=== PATIENT | female | born 1995 | race Caucasian/White ===

== ENCOUNTER 2018-11-01 08:23 | Outpatient (CLI) | payer OTHER ==
--- NOTE | 2018-11-01 13:20 | Ultrasound Report ---
Reason: SCREENING,OTEHR SPECIFIED Procedure Date: 11/01/2018 Accession Number: [id number] / [id number] Procedure: US - OB Detailed Eval CPT Code: FULL RESULT: EXAM: COMPLETE OBSTETRICAL ULTRASOUND EXAM DATE: 11/01/2018 10:15 AM. CLINICAL HISTORY: anatomic survey. COMPARISON: None. TECHNIQUE: Real-time sonographic evaluation of the fetus performed by the material manager. Multiple claim service representative static images were saved for review. Additional transvaginal imaging to more accurately evaluate cervical length/placental position/etc. DATING: Established EGA 19 weeks 1 day with [facility] 03/27/2019 based on LMP. EGA 19 weeks 2 days with [facility] 05/26/2018 based on the current ultrasound. GENERAL EVALUATION Macias . Cardiac activity: bpm. movement: Visualized. Presentation: Variable Placenta: Posterior position. Low lying placental edge approximately 1-2 cm from internal os. Umbilical cord: 3 vessel cord. Central placental cord origin. Amniotic fluid: Subjectively normal. MVP 4.0 cm. SOSA 11.4 cm. BIOMETRY Bi-Parietal Diameter (BPD): 4.4 cm, 19 weeks 3 days Head Circumference (HC): 16.5 cm, 19 weeks 1 day Abdominal Circumference (AC): 13.5 cm, 19 weeks 0 days Femur Length (FL): 3.1 cm, 19 weeks 4 days Estimated Weight: 281 g, 51 percentile for 19 weeks 1 day. ANATOMY The intracranial structures, profile, face/nose/lips, spine, 4 chamber heart and outflow tracts, stomach, abdominal wall and cord insertion, diaphragm, kidneys, bladder, and extremities were visualized and demonstrate no abnormality. MATERNAL STRUCTURES Uterus: Probable tiny anterior intramural fibroid measuring 19 mm in maximal diameter. Cervix: Long and closed. Transabdominal length 4.2 cm. Right ovary/adnexa: Unremarkable. Left ovary/adnexa: Unremarkable. Free fluid: None. IMPRESSION: 1. Macias live intrauterine with gestational age 19 weeks 2 days based on current ultrasound. 2. Estimated weight is within expected limits for assigned dating. 3. Normal anatomic survey. No anatomic abnormalities are detected at this time. RADIA
== END 2018-11-01 08:24 | disposition home or self-care (01) ==
LOC: DI 08:23
PROVIDERS: ATTEND Obstetrics & Gynecology
DX: Z36.89 Encounter for other specified antenatal screening (principal)
CPT/HCPCS: 76811

== ENCOUNTER 2018-11-13 09:38 | Outpatient (CLI) | payer OTHER ==
[2018-11-15 12:41] LABS: HSV 1 IGG TYPE SPECIFIC AB <0.90 index; HSV 2 IGG TYPE SPECIFIC AB <0.90 index
== END 2018-11-13 23:59 | disposition home or self-care (01) ==
LOC: LAB 09:38
PROVIDERS: ATTEND Obstetrics & Gynecology
DX: Z34.00 Encounter for supervision of normal first pregnancy, unspecified trimester (principal); Z91.89 Other specified personal risk factors, not elsewhere classified
CPT/HCPCS: 36415; 86695; 86696

== ENCOUNTER 2018-12-20 10:16 | Outpatient (CLI) | payer OTHER ==
[2018-12-20 11:37] LABS: HGB - HEMOGLOBIN 11.6 g/dL (12.0-16.0); MEAN CORPUSCULAR HEMOGLOBIN 31.3 pg (27.0-31.0); MEAN CORPUSCULAR HGB CONC 33.5 g/dL (32.0-36.0); MEAN CORPUSCULAR VOLUME 93.3 fL (81.0-99.0); MEAN PLATELET VOLUME 10.2 fL (7.9-10.8); RED BLOOD COUNT 3.71 10^6/uL (4.20-5.40); RED CELL DISTRIBUTION WIDTH 13.2 % (12.0-15.0); WHITE BLOOD COUNT 9.3 x10^3/uL (4.8-10.8)
== END 2018-12-20 10:17 | disposition home or self-care (01) ==
LOC: LAB 10:16
PROVIDERS: ATTEND Obstetrics & Gynecology
DX: Z36.89 Encounter for other specified antenatal screening (principal)
CPT/HCPCS: 36415; 82950; 85027; 86850

== ENCOUNTER 2019-01-04 08:42 | Outpatient (CLI) | payer OTHER | END 2019-01-04 08:43 | disposition home or self-care (01) | LOC: LAB 08:42 | PROVIDERS: ATTEND Obstetrics & Gynecology | DX: O99.810 Abnormal glucose complicating pregnancy (principal) | CPT/HCPCS: 36415; 82951; 82952 ==

== ENCOUNTER 2019-03-02 08:00 | Outpatient (CLI) | payer OTHER ==
[2019-03-02 22:02] LABS: TRICHOMONAS VAGINALIS DNA NEGATIVE (NEGATIVE)
== END 2019-03-02 08:01 | disposition home or self-care (01) ==
LOC: LAB.R 08:00
PROVIDERS: ATTEND Obstetrics & Gynecology
DX: Z34.00 Encounter for supervision of normal first pregnancy, unspecified trimester (principal)
CPT/HCPCS: 87491; 87591; 87661; 87797

== ENCOUNTER 2019-03-25 14:01 | Inpatient (IN) | payer OTHER ==
[2019-03-25] MEDS ORDERED: SODIUM CHLORIDE FLUSH 0.9% 10 ML SYRINGE IVP PRN ×3 (14:17→16:43)
[2019-03-25 14:41] LABS: RUPTURE OF MEMBRANES PLUS POSITIVE (NEGATIVE)
[2019-03-25] MEDS ORDERED: ONDANSETRON 4 MG/2 ML VIAL IVP PRN (14:52)
[2019-03-25] MEDS ORDERED: fentaNYL 100 MCG/2 ML VIAL IVP PRN (14:52)
[2019-03-25] MEDS ORDERED: OXYTOCIN/SODIUM CHLORIDE 500 ML IV PRN (14:52)
[2019-03-25] MEDS ORDERED: METOCLOPRAMIDE 10 MG/2 ML VIAL IVP PRN (14:52)
[2019-03-25] MEDS ORDERED: miSOPROStoL 200 MCG TABLET PR SCH (14:57)
[2019-03-25 15:27] LABS: BASOPHILS # (AUTO) 0.1 10^3/uL (0.0-0.1); BASOPHILS % (AUTO) 0.5 %; EOSINOPHILS # (AUTO) 0.1 10^3/uL (0.0-0.7); EOSINOPHILS % (AUTO) 0.8 %; LYMPHOCYTES % (AUTO) 18.7 %; MEAN CORPUSCULAR HGB CONC 34.1 g/dL (32.0-36.0); MEAN CORPUSCULAR VOLUME 90.9 fL (81.0-99.0); MEAN PLATELET VOLUME 10.7 fL (7.9-10.8); MONOCYTES # (AUTO) 0.7 10^3/uL (0.0-1.0); MONOCYTES % (AUTO) 6.4 %; NEUTROPHILS # (AUTO) 7.6 10^3/uL (1.5-6.6); NEUTROPHILS % (AUTO) 72.3 %; PLT - PLATELET COUNT 161 10^3/uL (130-450); RED BLOOD COUNT 4.51 10^6/uL (4.20-5.40); RED CELL DISTRIBUTION WIDTH 13.6 % (12.0-15.0); WHITE BLOOD COUNT 10.5 x10^3/uL (4.8-10.8)
--- NOTE | 2019-03-25 16:49 | HISTORY & PHYSICAL EXAMINATION ---
Admit History - Visit Reason Visit Reason: Membranes rupture - : 1 Parity: 0 Care: positive: [facility] Risk/History: positive: None Complications This : positive: None Smoking Status: Never smoker - Mother's Labs Mother's Blood Type: positive: O Mother's RH: positive: Positive GBS: positive: Group B Step Negative Rubella Status: positive: Immune (Patient is a 23-year-old G1, P0 at 39 weeks 5 days here with spontaneous rupture of membranes. has been complicated by failed Glucola of 160 with normal follow-up 3-hour oral glucose tolerance test. Patient has had membranes stripped twice. SVE 8 prior exam was 2/50/- 2/medium/mid. At approximately 12 noon today, patient experienced low loss of fluid per vagina. She presented to triage and tested positive with the ROM plus. Mild, intermittent contractions per her assessment. No vaginal bleeding. Endorses movement. Wants to proceed with unmedicated vaginal delivery if possible. Does not want to be offered an epidural. Wants us to deny her epidural until she is asked to 3 times.) - Other Maternal History Other Maternal History: Patient is a 23-year-old G1, P0 at 39 weeks 5 days estimated gestational age here with spontaneous rupture of membranes. has been uncomplicated to date. Abnormal Glucola of 160 with normal follow-up 3-hour oral glucose tolerance test. Reports slow loss of fluid starting at 12:00 today. No vaginal bleeding. Endorses mild, intermittent contractions. Endorses movement. Desires unmedicated delivery if possible. Vertex by US O pos/Rub imm 1st trimester screen wnl, declined AFP FAS complete wnl. Low lying placenta but already 2 cm from os Breast pump prescription given Glucola: 160; normal 3H. Reviewed benefits of lower carbohydrate diet TDaP: complete GBS: neg Position: vertex by us HSV neg hx. Requested serologic testing: neg x2 Review of Systems - Other Findings Other Findings: As per HPI otherwise remaining systems are negative. Physical - Abdominal Exam Vital Signs: Temp Pulse Resp BP Pulse Ox 97.9 F 89 16 134/80 H 100 03/25/19 14:27 03/25/19 14:27 03/25/19 14:27 03/25/19 14:27 03/25/19 14:27 Contraction Frequency (min/apart): Irregular, Q5-7 Contraction Intensity: positive: Mild to moderate Uterine Resting Tone: positive: Soft - Monitoring Heart Rate Baseline: 150 Strip Review: positive: Category I - Presentation Presentation: positive: Vertex - Vaginal Exam Membranes: positive: Membranes ruptured Dilation (in cm): 2 Effacement (%): 70 Station: positive: -2 Cervical Position: positive: Midposition - Speculum Exam Speculum Exam Performed: positive: No Findings: positive: Gross leak, Other (ROM+ positive) Plan for Labor - Plan For Labor Plan for Labor: LABOR: -Patient desires expectant management. Reviewed increased risks of chorioamnionitis after extended rupture. Recommend augmentation if labor has not started within 5 hrs of rupture. -Reviewed augmentation. Would recommend single dose misoprostol 50 mcg and then starting pitocin per protocol. -FU at 17:00 FWB: Vertex. Well grown. GBS neg. Cat I tracing -CEFM while under augmentation PAIN: Desires unmedicated delivery. Anticipate In-patient care
[2019-03-25] MEDS: miSOPROStoL 100 MCG TABLET BC SCH (16:50)
[2019-03-25] MEDS ORDERED: SODIUM CHLORIDE FLUSH 0.9% 10 ML SYRINGE IVP SCH ×2 (17:00)
[2019-03-25] MEDS: LACTATED RINGERS 1,000 ML IV SCH (21:28)
[2019-03-25] MEDS: OXYTOCIN/SODIUM CHLORIDE 500 ML IV PRN (21:28)
[2019-03-26] MEDS ORDERED: LACTATED RINGERS 1,000 ML IV ONE (02:04)
[2019-03-26] MEDS ORDERED: fentaNYL 100 MCG/2 ML VIAL ONE (02:06)
[2019-03-26] MEDS ORDERED: ROPIVACAINE 0.2% 200 MG/100 ML BAG EP ONE (02:07)
--- NOTE | 2019-03-26 02:38 | ANESTHESIA ---
Pre-Anesthesia VS, & Labs - Diagnosis Active labor - Procedure Continuous labor epidural Vital Signs: Temp Pulse Resp BP Pulse Ox 36.6 C 89 16 134/80 H 100 03/25/19 14:27 03/25/19 14:27 03/25/19 14:27 03/25/19 14:27 03/25/19 14:27 Height 5 ft 1.75 in Weight (kg) 72.575 kg - NPO Other (ice chips) - Is Patient ?: Yes - Lab Results Current Lab Results: Laboratory Tests 03/25/19 15:10: WBC 10.5, RBC 4.51, Hgb 14.0, Hct 41.0, MCV 90.9, MCH 31.0, MCHC 34.1, RDW 13.6, Plt Count 161, MPV 10.7, Neut # (Auto) 7.6 H, Lymph # (Auto) 2.0, [place] # (Auto) 0.7, Eos # (Auto) 0.1, Baso # (Auto) 0.1, Absolute Nucleated RBC 0.00, Nucleated RBC % 0.0 Fish Bones: 03/25/19 15:10 Home Medications and Allergies Active Medications Acetaminophen (Tylenol) 650 mg PO Q6H YURIY Fentanyl (Fentanyl) 50 mcg IVP Q1H PRN PRN Reason: PAIN Lactated Ringer's (Lr) 1,000 mls @ 150 mls/hr IV .Q6H40M YURIY Lactated Ringer's (Lr) 1,000 mls @ 100 mls/hr IV .Q10H YURIY Last Admin: 03/25/19 21:28 Dose: 100 mls/hr Oxytocin/Sodium Chloride (Pitocin/Sodium Chloride) 500 mls @ 999 mls/hr IV PRN PRN; Protocol PRN Reason: NEEDED PER PROVIDER ORDERS Last Admin: 03/25/19 21:28 Dose: 999 milliunit/min, 999 mls/hr Metoclopramide HCl (Reglan Inj) 10 mg IVP Q6H PRN PRN Reason: Nausea / Vomiting Misoprostol (Cytotec) 800 mcg MS ONCE YURIY Stop: 03/26/19 14:56 Misoprostol (Cytotec) 50 mcg BC Q4H YURIY Last Admin: 03/25/19 16:50 Dose: 50 mcg Ondansetron HCl (Zofran Inj) 4 mg IVP Q4H PRN PRN Reason: Nausea / Vomiting Sodium Chloride (Normal Saline Flush 0.9%) 10 ml IVP PRN PRN PRN Reason: NEEDED PER PROVIDER ORDERS Sodium Chloride (Normal Saline Flush 0.9%) 10 ml IVP 0100,0900,1700 YURIY Anes History & Medical History - Anesthetic History Anesthesia Complications: reports: No previous complications Family history of Anesthesia Complications: Denies Family history of Malignant Hyperthermia: Denies - Medical History Cardiovascular: reports: None Pulmonary: reports: None Gastrointestinal: reports: None Urinary: reports: None Neuro: reports: None Musculoskeletal: reports: None Endocrine/Autoimmune: reports: None Blood Disorders: reports: None Skin: reports: None Smoking Status: Never smoker Psychosocial: reports: No issues indicated - Obstetrical History : 1 Parity: 0 Events: positive: None Complications: positive: None Exam General: Alert, Oriented x3, Moderate distress Dental: WNL Mouth Opening: Greater than 4 Fingerbreadths Neck Mobility: Normal Mallampati classification: II Thyromental Distance: greater than 6 cm Cardiovascular: Regular rate Neurological: Normal speech Mental/Cognitive Status: Alert/Oriented X3 Cognitive Status: Within normal limits Plan Anesthesia Type: Epidural Consent for Procedure(s) Verified and Reviewed: Yes Code Status: Attempt Resuscitation ASA classification: 2-Mild systemic disease Is this case an emergency?: Yes
--- NOTE | 2019-03-26 02:40 | ANESTHESIA PROCEDURE NOTE ---
Anesthesia Epidural Template - Patient Report Patient Reports: positive: Pain controlled (See EHR for meds, rate)
[2019-03-26] MEDS ORDERED: ROPIVACAINE 0.2% 200 MG/100 ML BAG EP PRN (02:42)
[2019-03-26] MEDS ORDERED: ONDANSETRON 4 MG/2 ML VIAL IVP PRN ×2 (02:47)
[2019-03-26] MEDS ORDERED: NALBUPHINE 10 MG/ML AMP IVP PRN ×2 (02:47)
[2019-03-26] MEDS ORDERED: METOCLOPRAMIDE 10 MG/2 ML VIAL IVP PRN (02:47)
[2019-03-26] MEDS ORDERED: ePHEDrine 50 MG/ML VIAL IVP PRN (02:47)
[2019-03-26] MEDS ORDERED: LACTATED RINGERS 500 ML IV ONE (02:47)
[2019-03-26] MEDS ORDERED: NALOXONE 0.4 MG/ML VIAL IVP PRN (02:47)
[2019-03-26] MEDS ORDERED: diphenhydrAMINE INJ 50 MG/ML VIAL IVP PRN ×2 (02:47)
[2019-03-26] MEDS: LACTATED RINGERS 1,000 ML IV SCH ×7 (03:04→11:52)
[2019-03-26] MEDS ORDERED: LIDOCAINE-MPF 1% 30 ML VIAL ID PRN (07:45)
[2019-03-26] MEDS ORDERED: miSOPROStoL 100 MCG TABLET BC SCH (07:58)
[2019-03-26] MEDS: OXYTOCIN/SODIUM CHLORIDE 500 ML IV PRN (08:15)
[2019-03-26] MEDS ORDERED: METHYLERGONOVINE 0.2 MG/ML AMP IM PRN (08:26)
[2019-03-26] MEDS ORDERED: ONDANSETRON ODT 4 MG TABLET TL PRN (08:26)
[2019-03-26] MEDS ORDERED: CARBOPROST TROMETHAMINE 250 MCG/ML AMP IM PRN (08:26)
[2019-03-26] MEDS ORDERED: SIMETHICONE CHEW 80 MG TABLET PO PRN (08:26)
--- NOTE | 2019-03-26 08:30 | DELIVERY NOTE ---
Delivery Note - Infant Delivery Method Infant Delivery Method: positive: Spontaneous vaginal delivery - Cervical Ripening Method Cervical Ripening Method: positive: Misoprostil, Oxytocin - Presentation Presentation: positive: Vertex, CLAUDIA - right occiput anterior - Nuchal Cord Nuchal Cord: positive: None (Bandolier cord), Present - Anesthetic Anesthetic Type: - Amniotic Fluid Description Amniotic Fluid Description: positive: Clear - Laceration Laceration: positive: 1st degree, Periurethral - Suture Suture Type: positive: Vicryl Suture Size: positive: 4-0 - Delivery Outcome Delivery Outcome: positive: Livebirth - [place] : positive: Placed in direct skin contact with mother, Suctioned, Stimulated, Warmed, Lillian used sex: positive: Female - Cord Cord: positive: 3 vessels - Placenta Placenta: positive: Intact, Expressed - Estimated Blood Loss Estimated Blood Loss (in cc): 250 - Post Delivery Events Post Delivery Events: positive: No post delivery events - Delivery Comments (Free Text/Narrative) Delivery Comments (Free Text/Narrative): STAGE I: Patient is a 23-year-old G1, P0 at 39 weeks 5 days who presented with spontaneous rupture of membranes. Rupture occurred at approximately 12:00 pm on 03/25/19. Initial SVE was 2/70/-2/medium/mid. Clear fluid; no meconium. Expectant management for 5 hours prior to augmenting with misoprostol 50 mcg buccal x1.Augmentation continued with Pitocin, meeting maximum dose of 2 milliunits/min.GBS negative, no antibiotic prophylaxis indicated. Epidural for pain management. Category 1 tracing throughout stage I labor. STAGE II: Completely dilated at about 6:17 am. Labored down for approximately hour. Pushed well for about 32 minutes to deliver a viable female in vertex position. Delivered at 7:37 am. CLAUDIA presentation. Delivered easily with left shoulder anterior. Bandolier cord over shoulder and around waist. Delivered to maternal abdomen. Delayed cord clampling until pulsations had ceased. Then cord was clamped x2 and cut. Cord blood collected for maternal blood type of O positive. Apgars 9/9, weight pending. STAGE III: Placenta delivered with gentle downward pressure on cord and manual expression. Examined and found to be intact. Inspection of perineum revealed a first degree, right sided, periurethral laceration. Repaired with 4-0 Vicryl in the usual sterile fashion. Bleeding was heavier than usual after delivery. Misoprostol 600 mcg BC administered for prememptive management. EBL 250 cc. Procedure was well tolerated and without complication.
[2019-03-26] MEDS ORDERED: LIDOCAINE-MPF 1% 30 ML VIAL ONE ×2 (08:33→09:08)
[2019-03-26] MEDS ORDERED: miSOPROStoL 200 MCG TABLET ONE ×2 (08:34→09:08)
[2019-03-26] MEDS ORDERED: LACTATED RINGERS 1,000 ML IV SCH (09:00)
[2019-03-26] MEDS: IBUPROFEN 600 MG TABLET PO PRN ×3 (11:03→22:41)
[2019-03-26] MEDS: DOCUSATE SODIUM 100 MG CAPSULE PO PRN ×2 (11:04→22:41)
[2019-03-26] MEDS: ACETAMINOPHEN 500 MG TABLET PO PRN ×2 (11:04→18:45)
[2019-03-26] MEDS: HYDROCORTISONE 1% CREAM 28 GM TUBE PR PRN (11:10)
[2019-03-26] MEDS: miSOPROStoL 100 MCG TABLET BC SCH ×4 (11:45→11:51)
[2019-03-26] MEDS: SODIUM CHLORIDE FLUSH 0.9% 10 ML SYRINGE IVP SCH ×4 (11:45→17:09)
[2019-03-26] MEDS: ACETAMINOPHEN 325 MG TABLET PO SCH ×5 (11:46→11:52)
[2019-03-27] MEDS: ACETAMINOPHEN 325 MG TABLET PO SCH (02:34)
[2019-03-27] MEDS: IBUPROFEN 600 MG TABLET PO PRN ×3 (05:31→16:49)
[2019-03-27] MEDS: ACETAMINOPHEN 500 MG TABLET PO PRN ×2 (08:09→16:49)
[2019-03-27] MEDS: DOCUSATE SODIUM 100 MG CAPSULE PO PRN ×2 (08:10→21:29)
--- NOTE | 2019-03-27 09:02 | PROVIDER PROGRESS NOTE ---
Subjective - Prog Note Date Prog Note Date: 03/27/19 Prog Note Time: 09:01 - Subjective Pt reports feeling: Improved (Pain 2/10 breast feeding. reviewed advantages.) Objective - Vital Signs/Intake & Output Reviewed Vital Signs: Yes Vital Signs: Vital Signs x48h Temp Pulse Resp BP Pulse Ox 03/27/19 08:00 36.5 C 75 16 122/80 100 03/27/19 05:30 36.4 C L 84 16 122/78 100 Intake & Output: Intake & Output 03/25/19 03/25/19 03/26/19 03/27/19 00:59 23:59 23:59 23:59 Intake Total 2590 Output Total 1100 Balance 1490 - Objective General Appearance: positive: No acute distress, Alert Respiratory: positive: Chest non-tender, No respiratory distress, Breath sounds nml Cardiovascular: positive: Regular rate & rhythm, No murmur, No gallop Abdomen: positive: Non-tender, Mass (U-1 mildly tender) Back: negative: CVA tenderness (R), CVA tenderness (L) Extremities: negative: Calf tenderness, Ochoa's sign/cords - Lab Results Fish Bones: 03/25/19 15:10 Other Labs: Lab Results x24hrs 03/26/19 03/25/19 Range/Units 07:30 15:10 Blood Type O POSITIVE Blood Type Recheck O POSITIVE Antibody Screen NEGATIVE Assessment/Plan - Problem List (1) (spontaneous vaginal delivery) Impression: PPD #1 progressing breast feeding.
[2019-03-28] MEDS: IBUPROFEN 600 MG TABLET PO PRN ×2 (06:02→12:36)
[2019-03-28] MEDS: ACETAMINOPHEN 500 MG TABLET PO PRN (06:02)
[2019-03-28 09:40] VITALS: BP 125/80
[2019-03-28] MEDS: HYDROCORTISONE 1% CREAM 28 GM TUBE PR PRN (12:36)
[2019-03-28] MEDS: DOCUSATE SODIUM 100 MG CAPSULE PO PRN (12:36)
--- NOTE | 2019-03-28 13:25 | Labor Flowsheet ---
Labor Flowsheet Datetime Report Generated by CPN: 03/28/2019 13:25 Datetime: 03/28/2019 09:23 VITAL SIGNS NBP Sys/Praveena/Mean (mmHg): 125 : 80 : 89 Pulse: 77 LaborFlag: Labor Datetime: 03/27/2019 05:29 SpO2 (%): 100 Datetime: 03/26/2019 07:37 UTERINE ACTIVITY Monitor Mode: External Frequency (min): 2-3 Quality: Strong Duration (sec): 60 Pattern: Normal: <= 5 Contractions in 10 Minutes Resting Tone (Palpate): Relaxed Stage 2 Comments: 0737 female infant Datetime: 03/26/2019 07:34 Pushing Position: Pushing with Contractions; Pushing Lithotomy Pushing Progress: Descent with Pushing; Presenting Part Visible; with Pushing; Pushing Eff ectively with Contractions Datetime: 03/26/2019 07:15 ASSESSMENT A Monitor Mode: External US FHR Baseline Rate : 135 Variability: Moderate 6-25 bpm Accelerations: 10X10 Decelerations: Variable Category: Category II Comments: Variable decels after patient began pushing Oxygen Method: Room Air Datetime: 03/26/2019 07:09 STAGE 2 Pushing: Coached on Pushing Communication Comments: Bedside report given to SHAHIDA Gilbert at bedside by SHAHIDA Staley. Care ta ashley over at this time Datetime: 03/26/2019 07:00 COMMUNICATION Communication: Provider at Bedside Datetime: 03/26/2019 06:36 Patient Position/Activity: Right Tilt; High Fowlers Datetime: 03/26/2019 06:34 Monitor Interventions for FHR: Ultrasound Adjusted Datetime: 03/26/2019 06:30 Contraction Comments: difficulty tracing ctx at this time due to maternal positioning Datetime: 03/26/2019 06:25 Temperature (C): 36.9 Datetime: 03/26/2019 06:17 Notification Reason: Status Update; Labor Status Datetime: 03/26/2019 06:15 VAGINAL EXAM Dilatation (cm): 10.0 Effacement (%): 100 Station: 0 Exam by: SHAHIDA Staley Vaginal Bleeding: Normal Show Datetime: 03/26/2019 06:12 Pain Assessment Comments: pt complaining of increased pain/pressure during and without ctx Datetime: 03/26/2019 05:11 PAIN Pain Scale: 2 Pain Presence: Intermittent Pain Type: Contraction Anesthesia Level Check: T10- Umbilicus Anesthesia Comments: Pt pain well controlled by epidural and is not pressing button for excess dosi ng. Pt able to assist with position changes and can slightly bend/lift legs. Datetime: 03/26/2019 03:34 Patient Care Comments: maternal positioning Datetime: 03/26/2019 03:15 Pitocin Checklist: At Least 1 Acceleration of 15 bpm x 15 Seconds in 30 Minutes or Adequate Variabi lity Datetime: 03/26/2019 03:14 Actions for Decelerations: IV Bolus Datetime: 03/26/2019 03:03 PATIENT CARE IV/Blood Work: New IV Bag Hung; IV Bag Number @ 2 Datetime: 03/26/2019 02:51 Monitor Interventions for UA: Bigelow Adjusted Datetime: 03/26/2019 02:39 Cervix, Consistency: Soft Cervix, Position: Midposition I/O Interventions: Grande Cath Inserted Datetime: 03/26/2019 02:25 Epidural Procedure Other: Pump Started Datetime: 03/26/2019 02:13 Epidural Procedure: Loading Dose Datetime: 03/26/2019 02:00 Epidural Positioning: Sitting Datetime: 03/26/2019 01:48 PROCEDURE TIME OUT Procedure Verify: Correct Side and Site are Marked; Accurate Procedure Consent Form; Agreement on P rocedure to be Done ANESTHESIA Anesthesia Plans: Epidural Datetime: 03/26/2019 00:30 Pain Location: Abdomen Pain Relief Measures: Comfort Measures Pain Coping: Breathing Through Contractions; Requesting Pain Medication or Epidural Comfort Measures: Breathing/Relaxation; Hot Shower/Tub/Spa; Back Rub Given; Family Support; Aromath erapy Hygiene: Underpad Changed; Gown Changed Datetime: 03/25/2019 22:11 MEDICATIONS Pitocin (milliunits): Increased to @ 2 Datetime: 03/25/2019 21:52 Membranes Ruptured Date/Time: 03/25/2019 12:00 Membranes Rupture Method: Spontaneous Amniotic Fluid Color: Clear Amniotic Fluid Amount: Small Amniotic Fluid Odor: Normal Cervical Ripening Agents Other: Pitocin Datetime: 03/25/2019 20:50 TEACHING Instructional Method: Verbal; Patient Instructed; Family/Support Person Instructed; Verbalized Unde rstanding Plan of Care: Plan of Care Discussed Unit Routine: Monitoring; IV Pumps Labor/Induction: Interventions Pain Management: IV Narcotics; Epidural; PRN Medications; Comfort Measures Related: Activity and Rest Datetime: 03/25/2019 19:44 FHR Baseline Changes: No Baseline Change Datetime: 03/25/2019 17:57 Respirations: 18 Datetime: 03/25/2019 16:50 Cervical Ripening Agents: Cytotec @ Medication Comments: buccal
--- NOTE | 2019-04-02 19:02 | DISCHARGE SUMMARY ---
Discharge Summary Discharge Date: 03/28/19 Discharging Provider: Emily Keenan MD Condition at Discharge: Good Discharge Disposition: 01 Home, Self Care - DIAGNOSES Admission Diagnoses: IUP at 39w5d Spontaneous rupture of membranes Discharge Diagnoses with Status of Each Condition: Same and delivery of term gestation - HPI History of Present Illness: Patient is a 23-year-old G1, P0 at 39 weeks 5 days who presented with spontaneous rupture of membranes. had been complicated by failed Glucola of 160 with normal follow-up 3-hour oral glucose tolerance test. Patient has had membranes stripped twice. SVE 8 prior exam was 2/50/-2/medium/mid. At approximately 12 noon on day of admission, patient experienced loss of fluid per vagina. She presented to triage and tested positive with the ROM plus. Mild, intermittent contractions per her assessment. - HOSPITAL COURSE Hospital Course: STAGE I: Patient is a 23-year-old G1, P0 at 39 weeks 5 days who presented with spontaneous rupture of membranes. Rupture occurred at approximately 12:00 pm on 03/25/19. Initial SVE was 2/70/-2/medium/mid. Clear fluid; no meconium. Expectant management for 5 hours prior to augmenting with misoprostol 50 mcg buccal x1.Augmentation continued with Pitocin, meeting maximum dose of 2 milliunits/min.GBS negative, no antibiotic prophylaxis indicated. Epidural for pain management. Category 1 tracing throughout stage I labor. STAGE II: Completely dilated at about 6:17 am. Labored down for approximately hour. Pushed well for about 32 minutes to deliver a viable female infant in vertex position. Delivered at 7:37 am. CLAUDIA presentation. Delivered easily with left shoulder anterior. Bandolier cord over shoulder and around waist. Delivered to maternal abdomen. Delayed cord clampling until pulsations had ceased. Then cord was clamped x2 and cut. Cord blood collected for maternal blood type of O positive. Apgars 9/9, weight pending. STAGE III: Placenta delivered with gentle downward pressure on cord and manual expression. Examined and found to be intact. Inspection of perineum revealed a first degree, right sided, periurethral laceration. Repaired with 4-0 Vicryl in the usual sterile fashion. Bleeding was heavier than usual after delivery. Misoprostol 600 mcg BC administered for prememptive management. EBL 250 cc. course was uncomplicated. By PPD#1, patient was up and ambulating, tolerating po, and voiding. In-patient until PPD#2 for support and observation of . Discharged to home on PPD#2. O positive, rubella immune - ALLERGIES Allergies/Adverse Reactions: Allergies Allergy/AdvReac Type Severity Reaction Status Date / Time No Known Drug Allergies Allergy Verified 03/26/19 04:09 - PHYSICAL EXAM AT DISCHARGE General Appearance: positive: No acute distress Respiratory: positive: Chest non-tender, No respiratory distress, Breath sounds nml Cardiovascular: positive: Regular rate & rhythm Peripheral Pulses: positive: 1+ Abdomen: positive: Non-tender, No distention, Other (FF below umbilicus) Extremities: positive: Non-tender, No pedal edema - LABS Result Diagrams: 03/25/19 15:10 - FOLLOW UP Follow Up: Follow-up in one week withDr. Keenan for support and at 6 weeks for routine follow-up. - TIME SPENT Time Spent in Discharge (Minutes): 30
== END 2019-03-28 13:15 | disposition home or self-care (01) | DRG 807 ==
LOC: WFO 14:01 → FBP 14:03 → WFO 14:51 → FBP 14:52
PROVIDERS: ADMIT Obstetrics & Gynecology; ATTEND Obstetrics & Gynecology
PROC: 10E0XZZ Delivery of Products of Conception, External Approach (ICD-10-PCS; principal; 2019-03-26)
PROC: 0UQMXZZ Repair Vulva, External Approach (ICD-10-PCS; 2019-03-26)
DX: O71.82 Other specified trauma to perineum and vulva (principal); Z37.0 Single live birth; O69.82X0 Labor and delivery complicated by other cord entanglement, without compression, not applicable or unspecified; Z3A.39 39 weeks gestation of pregnancy
CPT/HCPCS: 36415; 84112; 85025; 86850; 86900; 86901; 99213; A9270; J7120

== ENCOUNTER 2019-10-28 10:37 | Emergency (ER) | payer OTHER ==
--- NOTE | 2019-10-28 11:31 | ED Physician Documentation ---
PD HPI SKIN - Stated complaint Stated Complaint: L BREAST PX/FEVER - Chief complaint Chief Complaint: General - History obtained from History obtained from: Patient - History of Present Illness Timing - onset: How many days ago (1-2) Timing - duration: Days (1-2) Timing - details: Abrupt onset Location: Chest (left breast) Quality / character: Painful, Discolored (red), Swelling. No: Vesicular Associated symptoms: No: Fever, Myalgias, N/V/D Contributing factors: Other () Similar symptoms before: Diagnosis (mastitis 7 months ago and again about 3 months ago, with interval time having) Recently seen: Not recently seen Review of Systems Constitutional: denies: Fever, Chills, Myalgias Nose: denies: Rhinorrhea / runny nose, Congestion Throat: denies: Sore throat Respiratory: denies: Cough GI: denies: Nausea, Vomiting, Diarrhea Skin: denies: Rash, Lesions PD PAST MEDICAL HISTORY - Past Medical History Past Medical History: No Cardiovascular: None Respiratory: None Neuro: None Endocrine/Autoimmune: None GI: None : None Musculoskeletal: None Derm: None - Past Surgical History Past Surgical History: No - Present Medications Home Medications: Ambulatory Orders Medication Instructions Recorded Confirmed Cephalexin [Keflex] 500 mg PO Q6H #28 capsule 10/28/19 Naproxen 500 mg PO BID #20 tablet 10/28/19 - Allergies Allergies/Adverse Reactions: Allergies Allergy/AdvReac Type Severity Reaction Status Date / Time No Known Drug Allergies Allergy Verified 03/26/19 04:09 - Social History Does the pt smoke?: No Smoking Status: Never smoker Does the pt drink ETOH?: No Does the pt have substance abuse?: No - Immunizations Immunizations are current?: Yes PD ED PE NORMAL - Vitals Vital signs reviewed: Yes - General General: Alert and oriented X 3, No acute distress, Well developed/nourished - HEENT HEENT: Pharynx benign - Neck Neck: Supple, no meningeal sign, No adenopathy - Cardiac Cardiac: RRR, No murmur, Other (left breast at 12-2 o'clock position with firmness, tenderness, redness and warmth. No fluctuance. ) - Respiratory Respiratory: No respiratory distress, Clear bilaterally - Abdomen Abdomen: Soft, Non tender Results - Vitals Vitals: Vital Signs - 24 hr 10/28/19 10/28/19 10:48 11:59 Temperature 36.5 C 36.8 C Heart Rate 96 95 Respiratory 16 16 Rate Blood Pressure 136/65 H 132/65 H O2 Saturation 98 98 Oxygen O2 Source Room air PD MEDICAL DECISION MAKING - ED course Complexity details: considered differential (acute mastitis in woman.), d/w patient Departure - Departure Disposition: 01 Home, Self Care Clinical Impression: Acute mastitis of left breast Condition: Stable Record reviewed to determine appropriate education?: Yes Instructions: ED Breast Infec Follow-Up: Ana Keenan MD [Primary Care Provider] - Prescriptions: Cephalexin [Keflex] 500 mg PO Q6H #28 capsule Naproxen 500 mg PO BID #20 tablet Comments: Stay well-hydrated. Continue breast-feeding or pumping. Tylenol as needed for fevers and pains. Also add anti-inflammatory such as naproxen twice daily for the next 5 to 7 days. Cephalexin antibiotic 4 times a day for a week for the infection. Recheck if not improving well over the next couple of days. Discharge Date/Time: 10/28/19 12:00
[2019-10-28] MEDS ORDERED: cephALEXin 250 MG CAPSULE PO STA (11:46)
[2019-10-28] MEDS ORDERED: NAPROXEN 250 MG TABLET PO STA (11:46)
[2019-10-28 12:01] VITALS: BP 132/65
== END 2019-10-28 12:00 | disposition home or self-care (01) ==
LOC: ED 10:37
DX: N61.0 Mastitis without abscess (principal)
CPT/HCPCS: 99282; 99284; A9270

== ENCOUNTER 2020-02-03 14:21 | Outpatient (CLI) | payer OTHER ==
--- NOTE | 2020-02-03 16:17 | Ultrasound Report ---
PROCEDURE: OB First Trimester INDICATIONS: POSITIVE TEST OUTSIDE/PRIOR DATING DATA: Last menstrual period (LMP): 12/07/2019. LMP-based estimated date of delivery (NENA): 09/12/2020. First dating scan (date and location): 02/03/2020, current study. Estimated date of delivery (NENA) from first dating scan: 09/09/2020. TECHNIQUE: Real-time scanning was performed of the fetus and maternal pelvic organs, with image documentation. COMPARISON: None available FINDINGS: Embryo: There is an intrauterine fundal gestational sac which contains products of conception includ ing a pole and yolk sac. The pole has a crown-rump length of 2.06 cm which corresponds to an 8 week 5 day +/- 5 day gestation. There is a detectable cardiac activity at a rate of 171 b pm. The yolk sac size is normal. Measurement variability in dating: +/- 4 weeks by LMP, +/- 7 days by mean sac diameter (use before 6 weeks gestation if crown-rump length not able to be measured), +/- 5 days by crown-rump length (6-12 weeks gestation). Maternal organs: Ovaries are normal including the corpus luteum on the right ovary and normal follic ular echotexture on the left. Limited images through the kidneys demonstrate no hydronephrosis. IMPRESSION: 1. Single living intrauterine with a gestational age of 8 weeks and 5 days, and sonographic ally derived due date of 09/09/2020, in agreement with the clinically assigned due date. 2. Right ovarian corpus luteum. Reviewed by: Ariella Roland MD on 02/03/2020 4:16 PM PDT Approved by: Ariella Roland MD on 02/03/2020 4:16 PM PDT Station ID: [id number]
== END 2020-02-03 14:22 | disposition home or self-care (01) ==
LOC: DI 14:21
PROVIDERS: ATTEND Obstetrics & Gynecology
DX: O34.81 Maternal care for other abnormalities of pelvic organs, first trimester (principal); N83.11 Corpus luteum cyst of right ovary; Z3A.08 8 weeks gestation of pregnancy
CPT/HCPCS: 76801

== ENCOUNTER 2020-02-21 16:08 | Outpatient (CLI) | payer OTHER ==
[2020-02-21 16:31] LABS: BASOPHILS % (AUTO) 0.2 %; EOSINOPHILS # (AUTO) 0.1 10^3/uL (0.0-0.7); EOSINOPHILS % (AUTO) 1.1 %; LYMPHOCYTES % (AUTO) 24.8 %; MEAN CORPUSCULAR HEMOGLOBIN 30.4 pg (27.0-31.0); MEAN CORPUSCULAR HGB CONC 35.1 g/dL (32.0-36.0); MEAN CORPUSCULAR VOLUME 86.4 fL (81.0-99.0); MEAN PLATELET VOLUME 9.7 fL (7.9-10.8); MONOCYTES # (AUTO) 0.4 10^3/uL (0.0-1.0); MONOCYTES % (AUTO) 5.5 %; NEUTROPHILS # (AUTO) 5.5 10^3/uL (1.5-6.6); NEUTROPHILS % (AUTO) 68.2 %; PLT - PLATELET COUNT 191 10^3/uL (130-450); RED BLOOD COUNT 4.28 10^6/uL (4.20-5.40); RED CELL DISTRIBUTION WIDTH 11.4 % (12.0-15.0)
[2020-02-22 07:06] LABS: HIV AG/AB 4TH GEN NON-REACTIVE (NON-REACTIVE)
[2020-02-22 15:05] LABS: HEPATITIS B SURFACE ANTIGEN NON-REACTIVE (NON-REACTIVE); HEPATITIS C ANTIBODY NON-REACTIVE (NON-REACTIVE)
== END 2020-02-21 16:09 | disposition home or self-care (01) ==
LOC: LAB 16:08
PROVIDERS: ATTEND Obstetrics & Gynecology
DX: Z36.89 Encounter for other specified antenatal screening (principal)
CPT/HCPCS: 36415; 81599; 85025; 86592; 86762; 86803; 86850; 86900; 86901; 87340; 87389

== ENCOUNTER 2020-03-27 14:16 | Outpatient (CLI) | payer OTHER | END 2020-03-27 14:17 | disposition home or self-care (01) | LOC: LAB 14:16 | PROVIDERS: ATTEND Obstetrics & Gynecology | DX: Z34.80 Encounter for supervision of other normal pregnancy, unspecified trimester (principal) | CPT/HCPCS: 36415; 81511; 81599 ==

== ENCOUNTER 2020-04-27 09:00 | Outpatient (CLI) | payer OTHER ==
--- NOTE | 2020-04-27 12:00 | Ultrasound Report ---
PROCEDURE: OB Detailed Eval INDICATIONS: SUPERVISION OF NORMAL OUTSIDE/PRIOR DATING DATA: Last menstrual period (LMP): 12/07/2019. LMP-based estimated date of delivery (NENA): 09/12/2020. First dating scan (date and location): 02/03/2020. Estimated date of delivery (NENA) from first dating scan: 09/09/2020. TECHNIQUE: Real-time scanning was performed of the fetus, with image documentation and biometric measurements. Endovaginal scanning: Not done COMPARISON: 02/02/2021 FINDINGS: General: A single live intrauterine gestation is present. Presentation: Transverse Placenta: Placental position is anterior, without previa. Amniotic fluid index: 13.7 cm, 43 percentile for gestational age. heart rate: 137 beats per minute. Maternal cervical canal: 4.6 cm long; normal length is 2.5 cm or more. biometrics: Biparietal diameter: 4.7 cm equals 20 weeks 1 day Head circumference: 18.1 cm equals 20 weeks 4 days Abdominal circumference: 16.3 cm equals 21 weeks 2 days Femur length: 3.5 cm equals 21 weeks 1 day Estimated gestational age from initial scan: 20 weeks 5 days Composite gestational age from present scan: 20 weeks 4 days Estimated weight and percentile: 400 g, 68th percentile Measurement variability in biometric dating: +/- 10 days from 12-20 weeks gestation, +/- 2 weeks from 20-30 weeks gestation, +/- 3 weeks at 30 weeks gestation or later. Anatomic survey: Neuro: Ventricles are normal at less than 10 mm. Cisterna magna is normal at 3-11 mm. Cerebellum i s normal in size and morphology. Nuchal skin fold: Normal at less than 6 mm between 14 and 20 weeks gestational age. Face: Nose and lips, facial profile are normal. Spine: No evidence for spina bifida. Heart: 4-chambered heart is present, with normal ventricular outflow tracts. Diaphragm: Diaphragm is intact. Stomach: Left-sided stomach is present. Kidneys: No hydronephrosis. Normal is less than 5 mm in 2nd trimester, less than 7 mm in 3rd trimester. Cord: 3 vessel cord has orthotopic insertion. Bladder: Normal in size. Extremities: All 4 extremities are visualized. IMPRESSION: Single live intrauterine . Normal interval growth compared to the prior ultrasound examination. No anatomic abnormalities are identified. Reviewed by: Kenneth Caba MD on 04/27/2020 10:59 AM [facility] Approved by: Kenneth Caba MD on 04/27/2020 10:59 AM [facility] Station ID: [id number]
== END 2020-04-27 09:01 | disposition home or self-care (01) ==
LOC: DI 09:00
PROVIDERS: ATTEND Obstetrics & Gynecology
DX: Z34.80 Encounter for supervision of other normal pregnancy, unspecified trimester (principal)

== ENCOUNTER 2020-06-25 08:00 | Outpatient (CLI) | payer OTHER ==
[2020-06-25 10:19] LABS: HGB - HEMOGLOBIN 12.8 g/dL (12.0-16.0); MEAN CORPUSCULAR HEMOGLOBIN 31.4 pg (27.0-31.0); MEAN CORPUSCULAR HGB CONC 33.6 g/dL (32.0-36.0); MEAN CORPUSCULAR VOLUME 93.6 fL (81.0-99.0); RED BLOOD COUNT 4.07 10^6/uL (4.20-5.40); RED CELL DISTRIBUTION WIDTH 13.3 % (12.0-15.0); WHITE BLOOD COUNT 8.6 x10^3/uL (4.8-10.8)
== END 2020-06-25 23:59 | disposition home or self-care (01) ==
LOC: LAB 08:00
PROVIDERS: ATTEND Obstetrics & Gynecology
DX: Z36.89 Encounter for other specified antenatal screening (principal)
CPT/HCPCS: 36415; 82950; 85027

== ENCOUNTER 2020-07-07 06:56 | Outpatient (CLI) | payer OTHER | END 2020-07-07 06:57 | disposition home or self-care (01) | LOC: LAB 06:56 | PROVIDERS: ATTEND Obstetrics & Gynecology | DX: O99.810 Abnormal glucose complicating pregnancy (principal) | CPT/HCPCS: 36415; 82951; 82952 ==

== ENCOUNTER 2020-08-18 08:00 | Outpatient (CLI) | payer OTHER | END 2020-08-18 23:59 | disposition home or self-care (01) | LOC: LAB.R 08:00 | PROVIDERS: ATTEND Obstetrics & Gynecology | DX: Z36.89 Encounter for other specified antenatal screening (principal) | CPT/HCPCS: 87797 ==

== ENCOUNTER 2020-08-29 11:01 | Outpatient (CLI) | payer OTHER ==
[2020-08-29 11:37] VITALS: BP 123/84
[2020-08-29 11:41] LABS: BASOPHILS % (AUTO) 0.3 %; EOSINOPHILS # (AUTO) 0.1 10^3/uL (0.0-0.7); EOSINOPHILS % (AUTO) 1.2 %; HCT - HEMATOCRIT 36.2 % (37.0-47.0); HGB - HEMOGLOBIN 12.5 g/dL (12.0-16.0); LYMPHOCYTES # (AUTO) 1.2 10^3/uL (1.5-3.5); LYMPHOCYTES % (AUTO) 17.7 %; MEAN CORPUSCULAR HEMOGLOBIN 31.5 pg (27.0-31.0); MEAN CORPUSCULAR HGB CONC 34.5 g/dL (32.0-36.0); MEAN CORPUSCULAR VOLUME 91.2 fL (81.0-99.0); MEAN PLATELET VOLUME 10.4 fL (7.9-10.8); MONOCYTES # (AUTO) 0.8 10^3/uL (0.0-1.0); NEUTROPHILS # (AUTO) 4.7 10^3/uL (1.5-6.6); NEUTROPHILS % (AUTO) 68.2 %; PLT - PLATELET COUNT 146 10^3/uL (130-450); RED BLOOD COUNT 3.97 10^6/uL (4.20-5.40); RED CELL DISTRIBUTION WIDTH 13.1 % (12.0-15.0); WHITE BLOOD COUNT 6.8 x10^3/uL (4.8-10.8)
[2020-08-29 11:52] LABS: BILIRUBIN,URINE NEGATIVE (NEGATIVE); GLUCOSE, URINE (UA) NEGATIVE (NEGATIVE); KETONES,URINE (UA) NEGATIVE (NEGATIVE); LEUKOCYTE ESTERASE, URINE MODERATE (NEGATIVE); NITRITE,URINE NEGATIVE (NEGATIVE); OCCULT BLOOD,URINE NEGATIVE (NEGATIVE); PROTEIN,URINE NEGATIVE (NEGATIVE); UROBILINOGEN,URINE 0.2 (NORMAL) E.U./dL (NORMAL)
[2020-08-29 11:52] LABS: ALBUMIN 3.2 g/dL (3.2-5.5); ALBUMIN/GLOBULIN RATIO 0.9 (1.0-2.2); BILIRUBIN,TOTAL 0.4 mg/dL (0.2-1.0); CALCIUM 9.2 mg/dL (8.5-10.3); CREATININE 0.5 mg/dL (0.4-1.0); POTASSIUM 4.3 mmol/L (3.5-5.0); TOTAL PROTEIN 6.7 g/dL (6.7-8.2)
[2020-08-29 12:07] LABS: BACTERIA,URINE Few /HPF (None Seen); CLARITY,URINE HAZY (CLEAR); RBC,URINE 0-5 /HPF (0-5); SQUAMOUS EPITHELIAL CELL,UR MANY Squamous (<= Few)
[2020-08-29 12:19] LABS: CREATININE,URINE 13.5 mg/dL; TOTAL PROTEIN,URINE TIMED < 6 mg/dL
--- NOTE | 2020-08-29 15:31 | PROCEDURE REPORT ---
- HPI Diagnosis/Indication for NST: Other (Maternal tachycardia) Current EDU 09/12/20 Gestation 38 Weeks and 0 Days 2 Para 1 Vital Signs Temperature 98.2 F 08/29/20 11:32 Heart Rate 122 H 08/29/20 11:32 Respiratory Rate 18 08/29/20 11:32 Blood Pressure 123/84 H 08/29/20 11:32 O2 Saturation 98 08/29/20 11:32 Temperature 98.2 F 08/29/20 11:32 Heart Rate 122 H 08/29/20 11:32 Respiratory Rate 18 08/29/20 11:32 Blood Pressure 123/84 H 08/29/20 11:32 O2 Saturation 98 08/29/20 11:32 - NST Procedure NST Procedure Start Date 08/29/20 Start Time 11:36 Stop Time 12:10 Vibroacoustic Stimulation Used No Patient States Movement Yes - Results and Plan Findings/Impression: Baseline: BPM 145 Variability: Moderate Accelerations: Present Decelerations: Absent Trends in FHR over time: change in baseline to 125BPM [place] contractions in 10 minutes: irritable Impression: reactive Category 1 NST Pt called clinic because her watch alerted her to elevated HR--it was 130. On arrival it was 120 and by discharge it was in the 90s. Pt without symptoms like CP, SOB, irregular heart beat, or unilateral leg edema. No labor signs. Here CMP and CBC were normal and tachycardia spontaneously resolved.
== END 2020-08-29 13:11 | disposition home or self-care (01) ==
LOC: WFO 11:01 → FBP 11:15 → WFO 13:11
PROVIDERS: ATTEND Obstetrics & Gynecology
DX: O99.413 Diseases of the circulatory system complicating pregnancy, third trimester (principal); R00.0 Tachycardia, unspecified; Z3A.38 38 weeks gestation of pregnancy
CPT/HCPCS: 59025; 80053; 81001; 82570; 84156; 85025; 87086; 99212

== ENCOUNTER 2020-09-18 02:46 | Inpatient (IN) | payer OTHER ==
[2020-09-18] MEDS ORDERED: OXYTOCIN/SODIUM CHLORIDE 500 ML IV PRN (03:01)
[2020-09-18] MEDS ORDERED: fentaNYL 100 MCG/2 ML VIAL IVP PRN (03:01)
[2020-09-18] MEDS ORDERED: SODIUM CHLORIDE FLUSH 0.9% 10 ML SYRINGE IVP PRN (03:01)
[2020-09-18] MEDS ORDERED: miSOPROStoL 200 MCG TABLET BC PRN (03:01)
[2020-09-18] MEDS ORDERED: OXYTOCIN 10 UNIT/ML VIAL IM PRN (03:01)
[2020-09-18] MEDS ORDERED: METHYLERGONOVINE 0.2 MG/ML VIAL IM PRN (03:01)
[2020-09-18] MEDS ORDERED: CARBOPROST TROMETHAMINE 250 MCG/ML AMP IM PRN (03:01)
[2020-09-18] MEDS ORDERED: LIDOCAINE-MPF 1% 30 ML VIAL ID PRN (03:01)
[2020-09-18] MEDS ORDERED: TRANEXAMIC ACID IN NACL 1,000 MG/100 ML BAG IV PRN (03:01)
--- NOTE | 2020-09-18 03:33 | HISTORY & PHYSICAL EXAMINATION ---
Admit History - Visit Reason Visit Reason: Contractions - : 2 Parity: 1 Risk/History: positive: None Complications This : positive: None Smoking Status: Never smoker - Mother's Labs Mother's Blood Type: positive: O Mother's RH: positive: Positive GBS: positive: Group B Step Negative Rubella Status: positive: Immune - Other Maternal History Other Maternal History: Patient is a 25 yo at 40+6 wga who presents in active labor. Had been scheduled for IOL for postdates later this morning. Started having painful contractions at about 1 am with contractions becoming more intense and frequent. Initial SVE was 890/-1 per RN exam. has been generally unconplicated. Hx of one prior . Desires unmedicated . PNC: Dating: LMP 12/07/2019 gives NENA 09/13/2019 Ultrasound on 02/03/2020 at 8 weeks 5 days gives NENA 09/10/2019; CWD Vertex by bedside us. SVE 3-80/-2 in clinic IOL 09/18/20. Consents signed. COVID vaccine completed O pos/Rub imm Genetic testing: QUAD wnl Prior records indicated carrier screening completed but no lab results seen to confirm Declined carrier screening this FAS: 68%ile, 3VC, anterior, FAS wnl, BOY: Osvaldo Mata (will go by middle name) TDAP - done on 07/07/20 Glucola: 140; normal 3H Influenza: complete HSV: Denies- confirmed GBS: Negative on 08/18/20 Breast pump: given MOD: Anticipate Last pap 09/11/18, wnl Past Medical History: ovarian cysts Past Surgical History: LSC ovarian cystectomy (ovary preserved) Vaginal wall cyst excision SOC HX: Lives in [place] with and daughter 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 Physical - Abdominal Exam Vital Signs: Temp Pulse Resp BP Pulse Ox 98.1 F 93 22 142/91 H 09/18/20 03:05 09/18/20 03:05 09/18/20 03:05 09/18/20 03:05 Contraction Frequency (min/apart): Q2 min Contraction Intensity: positive: Moderate to strong Uterine Resting Tone: positive: Soft - Monitoring Heart Rate Baseline: 130 mod barber 15x15 accels intermittent variable Strip Review: positive: Category II - Presentation Presentation: positive: Vertex - Vaginal Exam Membranes: positive: Membranes intact Dilation (in cm): 8 Effacement (%): 90 Station: positive: -2 Cervical Position: positive: Midposition - Other Notes Labor Progress Note/Additional Text: GEN: Discomfort with ctx/active labor HEENT: NCAT CV: RRR RESP: normal effort ABD: gravid, S&NT EXT: WWP PSYCH: Appropriate affect NEURO: A&O, normal gait and coordination SVE: /-1 Plan for Labor - Plan For Labor Plan for Labor: 25 yo at 40+6 wga here in active labor LABOR: Desires unmedicated 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
[2020-09-18] MEDS ORDERED: ONDANSETRON 4 MG/2 ML VIAL IVP PRN (03:45)
[2020-09-18] MEDS ORDERED: hydrALAZINE INJ 20 MG/ML VIAL IVP PRN ×2 (03:45)
[2020-09-18] MEDS ORDERED: LABETALOL 20 MG/4 ML SYRINGE IVP PRN ×3 (03:45)
[2020-09-18] MEDS ORDERED: NIFEdipine 10 MG CAPSULE PO PRN (03:45)
[2020-09-18] MEDS ORDERED: LACTATED RINGERS 1,000 ML IV SCH ×2 (04:00→05:00)
[2020-09-18 04:01] LABS: BASOPHILS % (AUTO) 0.3 %; EOSINOPHILS # (AUTO) 0.1 10^3/uL (0.0-0.7); HCT - HEMATOCRIT 41.6 % (37.0-47.0); LYMPHOCYTES # (AUTO) 2.1 10^3/uL (1.5-3.5); LYMPHOCYTES % (AUTO) 21.1 %; MEAN CORPUSCULAR HEMOGLOBIN 31.1 pg (27.0-31.0); MEAN CORPUSCULAR HGB CONC 33.7 g/dL (32.0-36.0); MEAN CORPUSCULAR VOLUME 92.4 fL (81.0-99.0); MEAN PLATELET VOLUME 11.2 fL (7.9-10.8); MONOCYTES # (AUTO) 0.8 10^3/uL (0.0-1.0); MONOCYTES % (AUTO) 7.6 %; NEUTROPHILS # (AUTO) 6.8 10^3/uL (1.5-6.6); PLT - PLATELET COUNT 143 10^3/uL (130-450); RED CELL DISTRIBUTION WIDTH 13.3 % (12.0-15.0); WHITE BLOOD COUNT 9.8 x10^3/uL (4.8-10.8)
[2020-09-18] MEDS ORDERED: HYDROCORTISONE 1% CREAM 28 GM TUBE PR PRN (04:29)
[2020-09-18] MEDS ORDERED: ONDANSETRON ODT 4 MG TABLET TL PRN (04:29)
--- NOTE | 2020-09-18 04:39 | DELIVERY NOTE ---
Delivery Note - Labor Labor: positive: Spontaneous - Delivery Method Delivery Method: positive: Spontaneous vaginal delivery - Presentation Presentation: positive: Vertex - Nuchal Cord Nuchal Cord: positive: Present, Reduced - Amniotic Fluid Description Amniotic Fluid Description: positive: Clear - Episiotomy Type Episiotomy Type: positive: None - Laceration Laceration: positive: None - [place]: positive: Placed in direct skin contact with mother, Stimulated, Warmed, [place] used sex: positive: Male - Cord Cord: positive: 3 vessels, True knot - Placenta Placenta: positive: Intact, Expressed - Estimated Blood Loss Estimated Blood Loss (in cc): 200 - Post Delivery Events Post Delivery Events: positive: No post delivery events - Delivery Comments (Free Text/Narrative) Delivery Comments (Free Text/Narrative): STAGE I: Patient is a 25 yo at 40+6 wga who presented in active labor. Initial SVE was 8/90/-1 at 3:00. She did not require pitocin augmentation. GBS negative; no antibiotics indicated. Had very limited use of nitrous oxide x one whiff. No other pain management. . Noted to be complete at 4:06 am. Spontaneous rupture of membranes within seconds of noting complete dilation. Clear fluid. Tracing varied between Category I and II tracing. Moderate variability and accel with recurrent variable STAGE II: Patient pushed well for 6 minutes to deliver a viable male infant in vertex presentation from hands and knees positioning. Terminal meconium at delivery. Nuchal cord was noted and was reduced. True knot was also observed. Infant was placed on maternal chest. Cord pulsations ceased and cord was clamped x2 and cut. Apgars were 8/8 with with weight pending. STAGE III: Placenta was delivered with manual expression. It was examined and found to be intact. Perineum was examined and found to be intact. EBL 200 mL at delivery. Patient passed a fair amount of clot about 30 minutes after delivery. Pitocin rate was increased and misoprostol 600 mcg BC was given to maintain uterine tone. Procedure was otherwise without complicated and was well tolerated.
[2020-09-18] MEDS: IBUPROFEN 600 MG TABLET PO PRN ×2 (04:41→18:15)
[2020-09-18] MEDS: ACETAMINOPHEN 500 MG TABLET PO PRN ×2 (04:42→18:16)
[2020-09-18] MEDS ORDERED: SODIUM CHLORIDE FLUSH 0.9% 10 ML SYRINGE IVP SCH (09:00)
--- NOTE | 2020-09-18 19:00 | PROVIDER PROGRESS NOTE ---
Subjective - Prog Note Date Prog Note Date: 09/18/20 Prog Note Time: 13:05 - Subjective Subjective: Patient tired after delivery this am. Toleraring po. Pain well managed. Voiding. BF going well. Objective - Vital Signs/Intake & Output Vital Signs: Vital Signs x48h Temp Pulse Resp BP Pulse Ox 09/18/20 16:15 98.2 F 81 18 130/65 100 09/18/20 12:00 98.2 F 98 18 128/74 98 Intake & Output: Intake & Output 09/15/20 09/16/20 09/17/20 09/18/20 23:59 23:59 23:59 23:59 Intake Total 800 Output Total 350 Balance 450 - Objective General Appearance: positive: No acute distress Respiratory: positive: No respiratory distress, Breath sounds nml Cardiovascular: positive: Regular rate & rhythm Abdomen: positive: Other (FF beow umbi. Soft and appropriately tender. Non- distended) - Lab Results Fish Bones: 09/18/20 03:10 Other Labs: Lab Results x24hrs 09/18/20 Range/Units 03:10 WBC 9.8 (4.8-10.8) x10^3/uL RBC 4.50 (4.20-5.40) 10^6/uL Hgb 14.0 (12.0-16.0) g/dL Hct 41.6 (37.0-47.0) % MCV 92.4 (81.0-99.0) fL MCH 31.1 H (27.0-31.0) pg MCHC 33.7 (32.0-36.0) g/dL RDW 13.3 (12.0-15.0) % Plt Count 143 (130-450) 10^3/uL MPV 11.2 H (7.9-10.8) fL Neut # (Auto) 6.8 H (1.5-6.6) 10^3/uL Lymph # (Auto) 2.1 (1.5-3.5) 10^3/uL [place] # (Auto) 0.8 (0.0-1.0) 10^3/uL Eos # (Auto) 0.1 (0.0-0.7) 10^3/uL Baso # (Auto) 0.0 (0.0-0.1) 10^3/uL Absolute Nucleated RBC 0.00 x10^3/uL Nucleated RBC % 0.0 /100WBC Assessment/Plan - Problem List (1) (spontaneous vaginal delivery) Impression: PPD#1: BF going well. Routine pp care Anticipate DC home in the am
[2020-09-19] MEDS: IBUPROFEN 600 MG TABLET PO PRN (05:25)
[2020-09-19] MEDS: ACETAMINOPHEN 500 MG TABLET PO PRN (05:26)
[2020-09-19 09:55] VITALS: BP 116/63
--- NOTE | 2020-09-19 10:40 | Discharge Plan ---
Discharge Plan Problem Reviewed?: Yes Disposition: Home, Self Care Condition: Good Prescriptions: Docusate Sodium 100Mg Capsule [Colace 100Mg Capsule] 100 - 200 mg PO BID PRN #60 cap PRN Reason: Constipation Norethindrone 0.35 mg PO DAILY #365 tablet Activity Restrictions: Additional Comments (Nothing in the vagina for 6 weeks: No intercourse, tampons, douching Call for: -Fever greater than 100.5 - Pain that does not improve with pain medication -Heavy bleeding in which you are soaking a pad an hour for 2 hours in a row) Additional Instructions or Follow Up instructions: Ibuprofen 600 mg by mouth every 6 hours as needed for pain Acetaminophen 500-1000 mg by mouth every 8 hours as needed for pain Docusate 100-200 mg by mouth twice a day as needed for constipation No Smoking: If you smoke, Please STOP! Call for help. Follow-up with: Ana Keenan MD [Provider Admit Priv/Credential] -
--- NOTE | 2020-09-19 10:45 | PROVIDER PROGRESS NOTE ---
Subjective - Prog Note Date Prog Note Date: 09/19/20 Prog Note Time: 10:42 - Subjective Subjective: Patient is up and ambulating, tolerating po, and voiding. Pain is well managed with pain medications. Objective - Vital Signs/Intake & Output Reviewed Vital Signs: Yes Vital Signs: Vital Signs x48h Temp Pulse Resp BP Pulse Ox 09/19/20 08:34 98.2 F 81 20 116/63 98 09/19/20 05:15 75 18 114/61 99 Intake & Output: Intake & Output 09/16/20 09/17/20 09/18/20 09/19/20 23:59 23:59 23:59 23:59 Intake Total 800 Output Total 350 Balance 450 - Objective General Appearance: positive: No acute distress Respiratory: positive: Chest non-tender, No respiratory distress Cardiovascular: positive: Other (Reg rate) Peripheral Pulses: 2+ Dorsalis pedis (R), 2+ Dorsalis pedis (L) Abdomen: positive: Non-tender, Other (FF below umbi) Extremities: positive: Non-tender, No pedal edema Neurologic/Psychiatric: positive: Oriented x3 - Lab Results Fish Bones: 09/18/20 03:10 Assessment/Plan - Problem List (1) (spontaneous vaginal delivery) Impression: PPD#1 s/p Meeting goals for discharge Routine instructions given Dc to home
--- NOTE | 2020-09-19 13:43 | Labor Flowsheet ---
Labor Flowsheet Datetime Report Generated by CPN: 09/19/2020 13:42 Datetime: 09/19/2020 10:52 Membranes Ruptured Date/Time: 09/18/2020 04:06 Datetime: 09/19/2020 08:34 VITAL SIGNS NBP Sys/Praveena/Mean (mmHg): 116 : 63 : 77 Pulse: 90 SpO2 (%): 98 Datetime: 09/18/2020 05:15 PAIN Pain Scale: 6 Pain Presence: Constant Pain Type: Pressure; Ache Pain Location: Perineum Datetime: 09/18/2020 04:45 Pain Relief Measures: Pain Medication Given (Annotations: Tylenol and Motrin given) Datetime: 09/18/2020 04:35 Stage of : Recovery Datetime: 09/18/2020 04:24 STAGE 2 Stage 2 Comments: ff/u-1/small, pitocin infusinf. mom holding onfnat skin to skin Datetime: 09/18/2020 04:06 VAGINAL EXAM Dilatation (cm): 10.0 [facility] Membrane Status: Ruptured Membranes Rupture Method: Spontaneous Amniotic Fluid Color: Clear Datetime: 09/18/2020 04:04 Vaginal Exam Comments: feels like pushing COMMUNICATION Communication: Provider at Bedside Provider Notified (Name): McSorley Datetime: 09/18/2020 04:02 MEDICATIONS Medication Comments: Nitrous oxide Datetime: 09/18/2020 03:47 UTERINE ACTIVITY Monitor Mode: External Frequency (min): 3-5 Quality: Strong Duration (sec): 60-120 Pattern: Normal: <= 5 Contractions in 10 Minutes Resting Tone (Palpate): Relaxed ASSESSMENT A Monitor Mode: Telemetry FHR Baseline Rate : 135 Variability: Moderate 6-25 bpm Accelerations: 15X15 Category: Category I Comments: drop out with maternal position changes Pain Coping: Breathing Through Contractions PATIENT CARE Patient Position/Activity: Hands-Knees Comfort Measures: Director Global Development Support Patient Care Comments: in bed on hands and knees during contractions
== END 2020-09-19 12:45 | disposition home or self-care (01) | DRG 807 ==
LOC: WFO 02:46 → FBP 02:48 → WFO 03:00 → FBP 03:01
PROVIDERS: ADMIT Obstetrics & Gynecology; ATTEND Obstetrics & Gynecology
PROC: 10E0XZZ Delivery of Products of Conception, External Approach (ICD-10-PCS; principal; 2020-09-18)
DX: O69.81X0 Labor and delivery complicated by cord around neck, without compression, not applicable or unspecified (principal); Z37.0 Single live birth; O69.2XX0 Labor and delivery complicated by other cord entanglement, with compression, not applicable or unspecified; Z3A.40 40 weeks gestation of pregnancy
CPT/HCPCS: 36415; 85025; A9270; J7120

== ENCOUNTER 2021-07-10 10:35 | Outpatient (CLI) | payer OTHER | END 2021-07-10 10:36 | disposition home or self-care (01) | LOC: LAB.N 10:35 | PROVIDERS: ATTEND Obstetrics & Gynecology | DX: Z32.01 Encounter for pregnancy test, result positive (principal) | CPT/HCPCS: 36415; 84702 ==